=== PATIENT | male | born 1950 | race Caucasian/White ===

== ENCOUNTER 2017-10-31 09:05 | Emergency (ER) | payer MEDICARE, BC ==
[2017-10-31 09:20] VITALS: O2SAT 97
--- NOTE | 2017-10-31 09:25 | ERPHSYRPT ---
- History of Present Illness Time Seen by Provider: 10/31/17 09:24 Source: patient Exam Limitations: no limitations Physician History: The patient is a 67-year-old right-handed male complaining of falling on or Tuesday (3-4 days ago), hurting his right wrist and forearm. The wrist and hand are still swollen. He has had surgery on his right forearm with "plates put in". He denies numbness or tingling. His past medical history is significant for right forearm open reduction internal fixation, CABG, coronary artery disease. Occurred: days ago (4) Reason for Fall: lost balance, fell from standing pos Injuries/Pain Location: upper extremity (right forearm, wrist, and hand) Loss of Consciousness: no loss of consciousness Quality: aching Severity of Pain-Max: moderate Severity of Pain-Current: moderate Modifying Factors: Improves With: nothing Associated Symptoms (Fall): extremity injury Allergies/Adverse Reactions: codeine Adverse Reaction (Intermediate, Verified 10/31/17 09:19) Vomiting Home Medications: Hydrocodone/APAP 5/325 [Montara 5/325 mg] 02/25/14 [History] - Review of Systems Constitutional: No Fever, No Chills Eyes: No Symptoms Ears, Nose, & Throat: No Symptoms Respiratory: No Cough, No Dyspnea Cardiac: No Chest Pain, No Edema, No Syncope Abdominal/Gastrointestinal: No Abdominal Pain, No Nausea, No Vomiting, No Diarrhea Genitourinary Symptoms: No Dysuria Musculoskeletal: Fall, Injury, Joint Swelling Skin: No Rash Neurological: No Dizziness, No Focal Weakness, No Sensory Changes Psychological: No Symptoms Endocrine: No Symptoms Hematologic/Lymphatic: No Symptoms Immunological/Allergic: No Symptoms All Other Systems: Reviewed and Negative - Past Medical History Pertinent Past Medical History: Yes Neurological History: Stroke ENT History: No Pertinent History Cardiac History: High Cholesterol, Hypertension, Myocardial Infarction ([place]) Respiratory History: No Pertinent History Endocrine Medical History: No Pertinent History Musculoskeletal History: No Pertinent History GI Medical History: No Pertinent History History: No Pertinent History Psycho-Social History: No Pertinent History Male Reproductive Disorders: No Pertinent History - Past Surgical History Past Surgical History: Yes Neuro Surgical History: No Pertinent History Cardiac: CABG Respiratory: No Pertinent History Gastrointestinal: Appendectomy Genitourinary: No Pertinent History Musculoskeletal: Orthopedic Surgery, Other Male Surgical History: No Pertinent History - Social History Smoking Status: Current every day smoker How long have you smoked: 40 Exposure to second hand smoke: Yes Drug Use: none - Nursing Vital Signs Nursing Vital Signs: Initial Vital Signs Temperature 98.6 F 10/31/17 09:08 Pulse Rate 68 10/31/17 09:08 Respiratory Rate 20 10/31/17 09:08 Blood Pressure 176/101 10/31/17 09:08 O2 Sat by Pulse Oximetry 97 10/31/17 09:08 Pain Scale Pain Intensity 10 - [place] Coma Score Best Eye Response ([place]): (4) open spontaneously Best Verbal Response ([place]): (5) oriented Best Motor Response ([place]): (6) obeys commands B[place] Total: 15 - Physical Exam General Appearance: no apparent distress, alert Head Injury: no evidence of injury Eye Exam: PERRL/EOMI ENT Exam: airway nml Neck Exam: normal inspection, No tenderness Respiratory/Chest Exam: normal breath sounds, No chest tenderness, No respiratory distress Cardiovascular Exam: normal heart sounds, regular rate/rhythm Gastrointestinal Exam: soft, No tenderness, No distention, No guarding, No ecchymosis Rectal Exam: not done Back Exam: normal inspection, No vertebral tenderness Extremity Exam: limited range of motion, pain with movement, swelling, tenderness, other (Examination of the right forearm, wrist, and hand shows a well healed scar from the open reduction internal fixation of the right forearm. There is limited range of movement of the forearm with supination and pronation. There is moderate swelling of the right wrist and right hand.) Neurologic Exam: alert, oriented x 3, cooperative, sensation nml, No motor deficits Skin Exam: normal color, warm, dry SpO2 Interpretation: normal Oxygen Delivery: Room Air - Radiology Exams Right Forearm X-ray Interpretation: Reviewed by , Teleradiologist Report, No Fracture (per Dr Pena) Right Wrist X-ray Interpretation: Reviewed by , Teleradiologist Report, No Fracture (per Dr Pena.) Right Hand X-ray Interpretation: Reviewed by , Teleradiologist Report, No Fracture (Per Dr Pena.) Ordered Tests: Active Orders 24 hr Category Date Time Status FOREARM Stat Exams 10/31/17 09:23 Completed HAND (MINIMUM 3 VIEWS) Stat Exams 10/31/17 09:27 Completed WRIST (MIN 3 VIEWS) Stat Exams 10/31/17 09:23 Completed - Progress Progress: unchanged Counseled pt/family regarding: need for follow-up, rad results - Departure Time of Disposition: 10:21 Departure Disposition: Home Clinical Impression: Right wrist sprain Condition: Stable Critical Care Time: No Referrals: EMERSON CUBA [Primary Care Provider] - Additional Instructions: You have a sprain of your right wrist. The x-rays of your forearm, wrist, and hand were negative broken bones. Your hardware fixing your forearm from past operations is normal in appearance. Wear the wrist splint to provide comfort. Keep your wrist and hand elevated. Apply ice as needed. Take Montara one tablet every 4-6 hours as needed. If there is no improvement in 1-2 days, please see Dr. Cuba or your orthopedic surgeon. Prescriptions: Hydrocodone/APAP 5/325 [Montara 5/325 mg] 1 each PO Q4-6HPRN PRN #10 tablet MDD 6 PRN Reason: Pain
--- NOTE | 2017-10-31 10:07 | XRAY ---
Indication: Pain following fall 4 days ago. Comparison: None 3 views of the right wrist demonstrates old distal radial/ulnar fractures with intact hardware and advanced radiocarpal degenerative changes similar appearance to right hand exam May 03, 2011. No other bony, articular, or soft tissue abnormalities.
--- NOTE | 2017-10-31 10:09 | XRAY ---
Indication: Pain following fall 4 days ago. Comparison: May 03, 2011. 3 views of the right hand again demonstrates mild degenerative changes of all IP joints and 1st metacarpal multangular articulation. No new/acute bony, articular, or soft tissue abnormalities. Right wrist and right forearm reported separately.
--- NOTE | 2017-10-31 10:10 | XRAY ---
Indication: Pain following fall 4 days ago. Comparison: None 2 views of the right forearm demonstrates old distal radial/ulnar fractures with intact hardware and advanced radiocarpal degenerative changes similar appearance to right hand exam May 03, 2011. No other bony, articular, or soft tissue abnormalities.
[2017-10-31 10:36] VITALS: BP 160/90; PULSE 70
== END 2017-10-31 10:35 | disposition home or self-care (01) ==
LOC: ED 09:05
DX: S63.501A Unspecified sprain of right wrist, initial encounter (principal); M79.631 Pain in right forearm; M25.531 Pain in right wrist; M79.641 Pain in right hand; W18.30XA Fall on same level, unspecified, initial encounter
CPT/HCPCS: 73090; 73110; 73130; 99283; L3908

== ENCOUNTER 2024-02-15 14:50 | Emergency (ER) | payer MEDICARE ==
--- NOTE | 2024-02-15 14:54 | ERPHSYRPT ---
- History of Present Illness Time Seen by Provider: 02/15/24 14:54 Source: patient, family Exam Limitations: no limitations Physician History: This is a 73-year-old white male patient who does have a history of hypertension but did not take his blood pressure medication this morning and was brought to the emergency department by private vehicle escorted by his sister in order for him to obtain a radiographic study that was ordered for him. Patient's primary care provider is nurse practitioner Hitesh. He also does see ornament stapler, Dr. Hernandez. It is standard for radiologic services to obtain vital signs before procedures or studies being performed. He had very elevated systolic blood pressure in the 200 range. Upon arrival to the emergency department the patient systolic blood pressure was 221. He was very anxious. The nurse followed up with the patient's pharmacy. The patient has not picked up any blood pressure medication since June 2023. Patient denies headache. Patient denies chest pain. Patient denies visual changes. Patient has a history of gout, hypertension, hyperlipidemia, CVA, coronary artery disease (CABG) Timing/Duration: today Severity: moderate (The value of the systolic blood pressure is elevated. Patient is asymptomatic) Associated Symptoms: denies symptoms Allergies/Adverse Reactions: codeine Adverse Reaction (Intermediate, Verified 02/15/24 15:13) Vomiting Home Medications: Rosuvastatin Calcium 10 mg PO DAILY 02/15/24 [History] Hx Tetanus, Diphtheria Vaccination/Date Given: No Hx Influenza Vaccination/Date Given: No Hx Pneumococcal Vaccination/Date Given: No Travel Risk - International Travel Have you traveled outside of the country in past 3 weeks: No - Emerging Infectious Disease Are you exhibiting symptoms associated with any current EIDs: No - Review of Systems Constitutional: No Symptoms Eyes: No Symptoms Ears, Nose, & Throat: No Symptoms Respiratory: No Symptoms Cardiac: No Symptoms Abdominal/Gastrointestinal: No Symptoms Genitourinary Symptoms: No Symptoms Musculoskeletal: No Symptoms Skin: No Symptoms Neurological: No Symptoms Psychological: No Symptoms Endocrine: No Symptoms Hematologic/Lymphatic: No Symptoms Immunological/Allergic: No Symptoms All Other Systems: Reviewed and Negative - Past Medical History Pertinent Past Medical History: Yes Neurological History: Stroke ENT History: No Pertinent History Cardiac History: High Cholesterol, Hypertension, Myocardial Infarction ([place]) Respiratory History: No Pertinent History Endocrine Medical History: No Pertinent History Musculoskeletal History: No Pertinent History GI Medical History: No Pertinent History History: No Pertinent History Psycho-Social History: No Pertinent History Male Reproductive Disorders: No Pertinent History - Past Surgical History Past Surgical History: Yes Neuro Surgical History: No Pertinent History Cardiac: CABG Respiratory: No Pertinent History Gastrointestinal: Appendectomy Genitourinary: No Pertinent History Musculoskeletal: Orthopedic Surgery, Other Male Surgical History: No Pertinent History - Social History Smoking Status: Current every day smoker How long have you smoked: 40 Exposure to second hand smoke: Yes Drug Use: none Patient Lives Alone: No - Nursing Vital Signs Nursing Vital Signs: Initial Vital Signs Temperature 98.5 F 02/15/24 15:01 Pulse Rate 83 02/15/24 15:01 Blood Pressure 221/108 02/15/24 15:01 O2 Sat by Pulse Oximetry 98 02/15/24 15:01 Pain Scale Pain Intensity 0 - Physical Exam General Appearance: no apparent distress, alert Eye Exam: PERRL/EOMI, eyes nml inspection Ears, Nose, Throat Exam: normal ENT inspection, moist mucous membranes Neck Exam: normal inspection, non-tender, supple, full range of motion Respiratory Exam: normal breath sounds, lungs clear, airway intact, No chest tenderness, No respiratory distress Cardiovascular Exam: regular rate/rhythm, normal heart sounds, normal peripheral pulses Gastrointestinal/Abdomen Exam: soft, normal bowel sounds, No tenderness Rectal Exam: not done Back Exam: normal inspection, normal range of motion, No CVA tenderness, No vertebral tenderness Extremity Exam: normal inspection, normal range of motion, pelvis stable Neurologic Exam: alert, oriented x 3, cooperative, custodial supervisor II-XII nml as tested, normal mood/affect, nml cerebellar function, nml station & gait, sensation nml Skin Exam: normal color, warm, dry Lymphatic Exam: No adenopathy SpO2 Interpretation: normal O2 Delivery: Room Air - Course Nursing assessment & vital signs reviewed: Yes EKG Interpreted by Me: RATE (84), Sinus Rhythm, NORMAL AXIS, NORMAL INTERVALS, NORMAL QRS, Non-specific ST Changes, Other (No acute ischemic changes on today's twelve-lead EKG. The QTc is 466) Ordered Tests: Active Orders 24 hr Category Date Time Status Rn Telehealth STAT Care 02/15/24 15:20 Active EKG-ER Only STAT Care 02/15/24 15:19 Active IV Insertion STAT Care 02/15/24 15:19 Active Pulse Oximetry (ED) STAT Care 02/15/24 15:19 Active CBC W DIFF Stat Lab 02/15/24 16:15 Completed CMP Stat Lab 02/15/24 16:15 Completed MAGNESIUM Stat Lab 02/15/24 16:15 Completed TROPONIN Q4H Lab 02/15/24 16:15 Completed TROPONIN Q4H Lab 02/15/24 19:30 Ordered TROPONIN Q4H Lab 02/15/24 23:30 Ordered Lab/Rad Data: Laboratory Result Diagrams 02/15/24 16:15 02/15/24 16:15 Laboratory Results 02/15/24 02/15/24 02/15/24 Range/Units 16:15 16:15 16:15 WBC 7.7 (4.23-9.07) x10^3/uL RBC 4.90 (4.63-6.08) x10^6/uL Hgb 14.7 (13.7-17.5) g/dL Hct 44.0 (40.1-51.0) % MCV 89.8 (79.0-92.2) fL MCH 30.0 (25.7-32.2) pg MCHC 33.4 (32.3-36.5) g/dL RDW 12.2 (11.6-14.4) % Plt Count 225 (163-337) x10^3/uL MPV 8.6 L (9.4-12.4) fL Gran % 69.0 H (34.0-67.9) % Immature Gran % (Auto) 0.7 H (0.001-0.429) % Nucleat RBC Rel Count 0.0 (0.00-0.2) % Eos # (Auto) 0.21 (0.04-0.54) x10^3/uL Immature Gran # (Auto) 0.05 H (0.001-0.031) x10^3u/L Absolute Lymphs (auto) 1.53 (1.32-3.57) x10^3/uL Absolute Monos (auto) 0.54 (0.30-0.82) x10^3/uL Absolute Nucleated RBC 0.00 (0.00-0.012) x10^3u/L Lymphocytes % 20.0 L (21.8-53.1) % Monocytes % 7.1 (5.3-12.2) % Eosinophils % 2.7 (0.8-7.0) % Basophils % 0.5 (0.2-1.2) % Absolute Granulocytes 5.28 (1.78-5.38) x10^3/uL Basophils # 0.04 (0.01-0.08) x10^3/uL Sodium 140 (135-145) mmol/L Potassium 4.5 (3.5-5.1) mmol/L Chloride 107 (98-107) mmol/L Carbon Dioxide 30 (22-30) mmol/L Anion Gap 8.2 (5-15) MEQ/L BUN 13 (9-20) mg/dL Creatinine 0.95 (0.66-1.25) mg/dL Estimated GFR 85.0 ML/MIN Glucose 113 H (74-106) mg/dL Calcium 9.4 (8.4-10.2) mg/dL Magnesium 2.0 (1.6-2.3) mg/dL Total Bilirubin 0.40 (0.2-1.3) mg/dL AST 24 (17-59) U/L ALT 27 (0-50) U/L Alkaline Phosphatase 80 (38-126) U/L Troponin I 0.013 (0.000-0.033) ng/mL Serum Total Protein 6.6 (6.3-8.2) g/dL Albumin 4.1 (3.5-5.0) g/dL - Progress Progress: unchanged Progress Note: 02/15/24 15:52 My medical decision making and the assignment of moderate complexity to this patient's medical issue today is based on review of the patient's past medical h istory, review of the patient's medication list, reviewed patient drug allergy list, history present illness and physical findings on examination. The workup includes placement of intravenous line, twelve-lead EKG, troponin level, CBC, CMP levels. We will also order serial blood pressure levels every 10 minutes. Differential diagnosis includes but not limited to asymptomatic hypertension, noncompliance with blood pressure medications 02/15/24 16:55 I interpreted the laboratory data results. Based on the laboratory data results, the patient does not have any acute, emergent medical findings. His systolic blood pressure dropped to the value of 160 mmHg without any intervention. Patient will be discharged to home and instructed to call his primary care provider tomorrow, 02/16/2024 to discuss management of his chronic high blood pressure. Patient continues to be asymptomatic 02/15/24 16:56 Counseled pt/family regarding: lab results, diagnosis, need for follow-up Medical Desision Making - Independent Historian Additional History obtained from: Family - Diagnostic Testing Diagnostic test were ordered, analyzed, and reviewed by me: Yes - Risk of complications Low Risk: Low risk of morbidity from additional dx testing or treatment - Departure Departure Disposition: Home Clinical Impression: Hypertension Condition: Stable Critical Care Time: No Referrals: PAVEL HERNANDEZ [Primary Care Provider] - Follow up/PCP as directed Additional Instructions: Call your primary prescribing provider tomorrow, 02/16/2024 to make arrangements for follow-up appointment to be seen in the next 3 days and for further instructions regarding your high blood pressure medication
[2024-02-15 15:13] VITALS: TEMP 98.5
[2024-02-15 16:18] LABS: Absolute Neutrophil Ct (ANC) 5.28 x10^3/uL (1.78-5.38); BASOPHIL % 0.5 % (0.2-1.2); Basophil (Absolute #) 0.04 x10^3/uL (0.01-0.08); Eosinophil % 2.7 % (0.8-7.0); Eosinophil (Absolute #) 0.21 x10^3/uL (0.04-0.54); Hemoglobin 14.7 g/dL (13.7-17.5); IMMATURE GRAN # 0.05 x10^3u/L (0.001-0.031); IMMATURE GRAN % 0.7 % (0.001-0.429); Lymphocyte (Absolute #) 1.53 x10^3/uL (1.32-3.57); Mean Cell Volume 89.8 fL (79.0-92.2); Mean Corpuscular Hgb Concent. 33.4 g/dL (32.3-36.5); Mean Platelet Volume 8.6 fL (9.4-12.4); Monocyte (Absolute #) 0.54 x10^3/uL (0.30-0.82); Monocytes % 7.1 % (5.3-12.2); Platelet Count 225 x10^3/uL (163-337); Red Cell Distribution Width 12.2 % (11.6-14.4); White Blood Count 7.7 x10^3/uL (4.23-9.07)
[2024-02-15 16:39] VITALS: RESP 20; O2SAT 95
[2024-02-15 16:39] LABS: ALBUMIN 4.1 g/dL (3.5-5.0); ANION GAP 8.2 MEQ/L (5-15); BILIRUBIN,TOTAL 0.4 mg/dL (0.2-1.3); Calcium 9.4 mg/dL (8.4-10.2); Creatinine 1 0.95 mg/dL (0.66-1.25); Potassium 4.5 mmol/L (3.5-5.1); Total Protein 6.6 g/dL (6.3-8.2)
[2024-02-15 17:04] VITALS: BP 171/87; PULSE 78
== END 2024-02-15 17:07 | disposition home or self-care (01) ==
LOC: ED 14:50
DX: I10 Essential (primary) hypertension (principal); E78.5 Hyperlipidemia, unspecified; Z79.899 Other long term (current) drug therapy; Z72.0 Tobacco use
CPT/HCPCS: 36415; 80053; 83735; 84484; 85025; 93005; 93041; 94760; 99284

== ENCOUNTER 2024-07-23 11:19 | Emergency (ER) | payer MEDICARE, OTHER ==
--- NOTE | 2024-07-23 12:23 | ERPHSYRPT ---
- History of Present Illness Time Seen by Provider: 07/23/24 12:23 Source: patient, family Exam Limitations: no limitations Physician History: This is a 74-year-old white male patient who presents to the emergency department by private vehicle accompanied by his spouse with right elbow pain. Patient fell 2 days ago onto his right elbow. Patient has a history of gout and hyperlipidemia. Although the patient is allergic to codeine, he has taken Garrard's and Percocets without difficulty or adverse effects per his report Occurred: days ago (2) Method of Injury: other (Patient tripped), fell Quality: constant, aching Severity of Pain-Max: mild (To moderate) Severity of Pain-Current: mild Extremities Pain Location: elbow: right Modifying Factors: Improves With: movement Associated Symptoms: none Allergies/Adverse Reactions: codeine Adverse Reaction (Intermediate, Verified 02/15/24 15:13) Vomiting Home Medications: Rosuvastatin Calcium 10 mg PO DAILY 02/15/24 [History] Hx Tetanus, Diphtheria Vaccination/Date Given: No Hx Influenza Vaccination/Date Given: No Hx Pneumococcal Vaccination/Date Given: No Travel Risk - International Travel Have you traveled outside of the country in past 3 weeks: No - Emerging Infectious Disease Are you exhibiting symptoms associated with any current EIDs: No - Review of Systems Constitutional: No Symptoms Eyes: No Symptoms Ears, Nose, & Throat: No Symptoms Respiratory: No Symptoms Cardiac: No Symptoms Abdominal/Gastrointestinal: No Symptoms Genitourinary Symptoms: No Symptoms Musculoskeletal: Fall (Patient tripped and fell 2 days ago), Injury (Right elbow) Skin: No Symptoms Neurological: No Symptoms Psychological: No Symptoms Endocrine: No Symptoms Hematologic/Lymphatic: No Symptoms Immunological/Allergic: No Symptoms All Other Systems: Reviewed and Negative - Past Medical History Pertinent Past Medical History: Yes Neurological History: Stroke ENT History: No Pertinent History Cardiac History: High Cholesterol, Hypertension, Myocardial Infarction ([place]) Respiratory History: No Pertinent History Endocrine Medical History: No Pertinent History Musculoskeletal History: No Pertinent History GI Medical History: No Pertinent History History: No Pertinent History Psycho-Social History: No Pertinent History Male Reproductive Disorders: No Pertinent History - Past Surgical History Past Surgical History: Yes Neuro Surgical History: No Pertinent History Cardiac: CABG Respiratory: No Pertinent History Gastrointestinal: Appendectomy Genitourinary: No Pertinent History Musculoskeletal: Orthopedic Surgery, Other Male Surgical History: No Pertinent History - Social History Smoking Status: Current every day smoker How long have you smoked: 40 Exposure to second hand smoke: Yes Drug Use: none Patient Lives Alone: No - Social Determinants of Health Will the patient participate in the screening: Yes Do you worry about a steady place to live?: No In the past 12 months,have you had to go without utilities?: No Transportation Issues: No Has anyone in your support network made you feel unsafe?: No Have you or anyone in your house had to go w/o enough food: No - Nursing Vital Signs Nursing Vital Signs: Initial Vital Signs Temperature 98.4 F 07/23/24 12:20 Pulse Rate 63 07/23/24 12:20 Respiratory Rate 18 07/23/24 12:20 Blood Pressure 202/71 07/23/24 12:20 O2 Sat by Pulse Oximetry 97 07/23/24 12:20 Pain Scale Pain Intensity 7 - Physical Exam General Appearance: no apparent distress, alert Eyes, Ears, Nose, Throat Exam: normal ENT inspection, moist mucous membranes Neck Exam: normal inspection, non-tender, supple, full range of motion Cardiovascular/Respiratory Exam: chest non-tender, no respiratory distress Abdominal Exam: non-tender Back Exam: normal inspection, normal range of motion, No CVA tenderness, No vertebral tenderness Shoulder Exam: normal inspection, non-tender, no evidence of injury, normal ROM Elbow/Forearm Exam: normal ROM, bone tenderness (Right elbow), soft tissue tenderness (Right elbow), swelling (Right elbow) Wrist Exam: normal inspection, non-tender, no evidence of injury, normal ROM Hand Exam: normal inspection, non-tender, no evidence of injury, normal ROM Neuro/Tendon Exam: normal sensation, normal motor functions, normal tendon functions Mental Status Exam: alert, oriented x 3, cooperative Skin Exam: normal color, warm, dry SpO2 Interpretation: normal O2 Delivery: Room Air - Course Nursing assessment & vital signs reviewed: Yes Ordered Tests: Active Orders 24 hr Category Date Time Status ELBOW (MINIMUM 3 VIEWS) Stat Exams 07/23/24 12:40 Completed - Progress Progress: unchanged, pain not gone completely Progress Note: 07/23/24 13:03 My medical decision making and the assignment of low complexity to this patient's medical issue today is based on review of the patient's past medical history, review of the patient's medication list, review the patient drug allergy list, history present illness and physical findings on examination. The workup in this patient includes x-ray of the patient's right elbow. Differential diagnosis includes but is not limited to contusion right elbow, dislocation right elbow, fractured right elbow, right elbow sprain The x-ray of the right elbow was interpreted by the radiologist and I reviewed the impression. The impression states mild degenerative changes. No new or acute bony fracture or dislocation seen. Counseled pt/family regarding: diagnosis, need for follow-up, rad results Medical Desision Making - Independent Historian Additional History obtained from: Spouse - Diagnostic Testing Diagnostic test were ordered, analyzed, and reviewed by me: Yes Radiological Interpretation: Reviewed by me, Teleradiologist Report - Risk of complications The pt has a mod risk of morbidity or mortality based on: Need for prescription drug management - Departure Departure Disposition: Home Clinical Impression: Contusion of right elbow Condition: Stable Critical Care Time: No Referrals: PAVEL HERNANDEZ [Primary Care Provider] - Follow up/PCP as directed Additional Instructions: May add ibuprofen 600 mg orally with food 3 times a day for the next 5 days if there are no contraindications. Take your medications as prescribed. Wear the right arm sling for comfort. Follow-up with your primary care provider or the [facility] orthopedic clinic. The clinic is open Tuesday through Tuesday 8 AM to 10 AM. It is a walk-in clinic and you do not need to have an appointment. Prescriptions: Hydrocodone/APAP 5/325 [Garrard 5/325 mg] 1 each PO Q12H PRN PRN #6 tablet MDD 3 PRN Reason: Pain
[2024-07-23 12:24] VITALS: TEMP 98.4
--- NOTE | 2024-07-23 12:57 | XRAY ---
Indication: Pain following fall. Comparison: December 16, 2015 3 view right elbow again demonstrates mild degenerative changes and partially visualized distal ulna/radial orthopedic hardware. No new/acute bony, articular, or soft tissue abnormalities.
[2024-07-23 13:04] VITALS: BP 188/70; PULSE 68; RESP 20; O2SAT 98
== END 2024-07-23 13:31 | disposition home or self-care (01) ==
LOC: ED 11:19
DX: S50.01XA Contusion of right elbow, initial encounter (principal); W19.XXXA Unspecified fall, initial encounter; E78.5 Hyperlipidemia, unspecified; I10 Essential (primary) hypertension; Z79.891 Long term (current) use of opiate analgesic; Z79.899 Other long term (current) drug therapy; Z72.0 Tobacco use
CPT/HCPCS: 73080; 99283